=== PATIENT | female | born 2000 | race Caucasian/White ===

== ENCOUNTER 2021-03-06 11:10 | Emergency (ER) | payer BC ==
--- OUTSIDE RECORDS SUMMARY | 2021-03-06 11:13 | XMS REPORT | Continuity of Care Document ---
:2000 Author Organization [facility] t Address [address] Coleman [address] [place] [id number] Care Team Providers Name Role Phone Marcial Rogers Attending Clinician Problems Condition Condition Condition Status Onset Resolution Last Treating Co mments Source Name Details Category Date Date Treatment Clinician Date Acute Acute Problem Active 2018-11 [facility] bronchitis Bronchitis 12-19 da 00:00: Medical 00 Group Anxiety Anxiety Problem Active [facility] 06-14 da 00:00: Medical 00 Group Pharyngiti Pharyngiti Problem Active [facility] Dysmenorrh Dysmenorrh Problem Active [facility] Otalgia Problem Resolve 2017-11-18 2017-11-18 Memoria (disorder) d 03-25 02:42:34 02:42:34 l Otalgia 00:00: Jean-Claude (disorder) 00 Resolved 03/25/2015 Problem 11/18/2017 Data migrated from [employer] on 06/05/15. Medical Group Stomatitis Problem Resolve 2017-11-18 2017-11-18 Memoria (disorder) d 03-25 02:42:34 02:42:34 l 00:00: [place] Stomatitis 00 (disorder) Resolved 03/25/2015 Problem 11/18/2017 Data migrated from [employer] on 06/05/15. Medical Group Acute Problem Resolve 2017-11-18 2017-11-18 Memoria bronchitis d 12-25 02:42:34 02:42:34 l (disorder) Acute 00:00: Mickie nn bronchitis 00 (disorder) Resolved 12/25/2014 Problem 11/18/2017 Data migrated from [employer] on 06/05/15. Medical Group Upper Problem Resolve 2013-112017-11-18 2017-11-18 Memoria respirator d 2-03 02:42:34 02:42:34 l y Upper 00:00: [place] infection respirator 00 (disorder) y infection (disorder) Resolved 10/31/2014 Problem 11/18/2017 Data migrated from [employer] on 06/15/15.Da ta migrated from [employer] on 06/14/15. Medical Group Allergies, Adverse Reactions, Alerts Allergy Allergy Status Severity Reaction(s) Onset Inactive Treating Comm ents Source Name Type Date Date Clinician Tramadol Allergy Active Hives [facility] to da substanc [facility] e Group Social History Smoking Status Start Date Stop Date Source Former Smoker [facility] Social History [facility] Medications Ordered Filled Start Stop Current Ordering Indication Dosage Frequency Signature Comments Components Source Medication Medication Date Date Medication? Clinician (SIG) Name Name dicyclomine dicyclomine No dicyclomin [facility] 20 mg 20 mg e 20 mg da tablet TAKE tablet TAKE tablet Medical 1 TABLET BY 1 TABLET BY TAKE 1 Group MOUTH EVERY MOUTH EVERY TABLET BY 6 HOURS 6 HOURS MOUTH NEEDED FOR NEEDED FOR EVERY 6 ABDOMINAL ABDOMINAL HOURS CRAMPS CRAMPS NEEDED FOR ABDOMINAL CRAMPS Diflucan Diflucan No 1 Q1D Diflucan [facility] 150 mg 150 mg 150 mg da tablet Take tablet Take tablet Medical 1 tablet 1 tablet Take 1 Group every day every day tablet by oral by oral every day route for 3 route for 3 by oral days. days. route for 3 days. duloxetine duloxetine No duloxetine [facility] 60 mg 60 mg 60 mg da capsule,del capsule,del capsule,de Medical ayed ayed layed Group release release release TAKE 1 TAKE 1 TAKE 1 CAPSULE BY CAPSULE BY CAPSULE BY MOUTH EVERY MOUTH EVERY MOUTH DAY DAY EVERY DAY ketorolac ketorolac No ketorolac [facility] 10 mg 10 mg 10 mg da tablet TAKE tablet TAKE tablet Medical 1 TABLET 1 TABLET TAKE 1 Group EVERY 6 EVERY 6 TABLET HOURS HOURS EVERY 6 NEEDED FOR NEEDED FOR HOURS SEVERE SEVERE NEEDED FOR PAIN. TAKE PAIN. TAKE SEVERE WITH FOOD WITH FOOD PAIN. TAKE WITH FOOD ondansetron ondansetron No ondansetro [facility] 4 mg 4 mg n 4 mg da disintegrat disintegrat disintegra Medical ing tablet ing tablet ting Hamzah up DISSOLVE 1 DISSOLVE 1 tablet TABLET IN TABLET IN DISSOLVE 1 MOUTH EVERY MOUTH EVERY TABLET IN 6 HOURS 6 HOURS MOUTH NEEDED FOR NEEDED FOR EVERY 6 NAUSEA. NAUSEA. HOURS NEEDED FOR NAUSEA. OptiChamber OptiChamber No OptiChambe [facility] Mikki VHC Mikki VHC r Mikki da spacer spacer [employer] spacer Medic al Group ProAir HFA ProAir HFA No 2puff(s Q4H ProAir HFA [facility] 90 90 ) 90 da mcg/actuati mcg/actuati mcg/actuat Medical on aerosol on aerosol ion Hamzah up inhaler inhaler aerosol Inhale 2 Inhale 2 inhaler puffs every puffs every Inhale 2 4 hours by 4 hours by puffs inhalation inhalation every 4 route as route as hours by needed. needed. inhalation route as needed. Prozac 20 Prozac 20 No 1capsul Q1D Prozac 20 [facility] mg capsule mg capsule e(s) mg capsule da Take 1 Take 1 Take 1 Medical capsule capsule capsule Group every day every day every day by oral by oral by oral route. route. route. 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 BP Systolic 2020-11-19 00:00:00 139 mm[Hg] [facility] Body Weight 2020-11-19 00:00:00 1891 [oz_av[facility] BP Diastolic 2019-10-19 00:00:00 78 mm[Hg] [facility] Height 2019-10-19 00:00:00 66 [in_i] [facility] BMI (Body Mass 2019-10-19 00:00:00 18 kg/m2 [facility] 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 BP Systolic 2019-10-19 00:00:00 115 mm[Hg] [facility] Body Weight 2019-10-19 00:00:00 1781 [oz_av] [facility] BP Diastolic 2019-08-07 00:00:00 73 mm[Hg] [facility] Height 2019-08-07 00:00:00 66 [in_i] [facility] BMI (Body Mass 2019-08-07 00:00:00 18.7 kg/m2 [facility] 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 BP Systolic 2019-08-07 00:00:00 117 mm[Hg] [facility] Body Weight 2019-08-07 00:00:00 1856 [oz_av] [facility] BP Diastolic 2019-06-14 00:00:00 67 mm[Hg] [facility] Height 2019-06-14 00:00:00 66 [in_i] [facility] BMI (Body Mass 2019-06-14 00:00:00 20.1 kg/m2 [facility] 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 BP Systolic 2019-06-14 00:00:00 118 mm[Hg] [facility] Body Weight 2019-06-14 00:00:00 1993.6 [oz_av] [facility] flight test mechanic Medical [facility] BP Diastolic 2019-05-19 00:00:00 72 mm[Hg] [facility] Height 2019-05-19 00:00:00 66 [in_i] [facility] BMI (Body Mass 2019-05-19 00:00:00 19.9 kg/m2 [facility] 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 BP Systolic 2019-05-19 00:00:00 120 mm[Hg] [facility] Body Weight 2019-05-19 00:00:00 1976 [oz_av] [facility] Procedures Procedure Date / Time Performed Performing Clinician Sour e XR, wrist, 2 view 2019-05-19 00:00:00 [facility] Ankle fracture [facility] Tibia and fibula [facility] n (combined site)<sup>1</sup> Plan of Care Planned Activity Planned Date Details Comments Source Instructions [facility] Encounters Start End Encounter Admission Attending Care Care Encounter Source Date/Time Date/Time Type Type Clinicians Facility Department ID 2020-11-19 2020-11-19 Brigette PEREZ [place] - [id number] [facility] 00:00:00 00:00:00 Discovery sabas Pastor PORTRAIT CONSULTANT: [address] [place] [address], [facility] [address] , Ph. 2019-10-19 2019-10-19 Vicky [facility] [place] - [id number] M [facility] 00:00:00 00:00:00 Chey Mendoza Medical Medical PORTRAIT CONSULTANT: [address] [place] [address], [place] [address] , Ph. 2019-08-07 2019-08-07 Brigette HAAS [place] - [id number] M [facility] 00:00:00 00:00:00 Discovery sabas Pastor PORTRAIT CONSULTANT: [address] [place] [address], [facility] [place] [address] , Ph. 2019-06-14 2019-06-14 Brigette [facility] [place] - [id number] M [facility] 00:00:00 00:00:00 Discovery sabas Pastor PORTRAIT CONSULTANT: [address] [place] [address], [facility] [place] [address] , Ph. 2019-05-19 2019-05-19 Vicky [facility] [place] - [id number] M [facility] 00:00:00 00:00:00 Chey Mendoza Medical Medical PORTRAIT CONSULTANT: [address] [place] [address], [place] [address] , Ph. 2017-11-15 2017-11-15 Outpatient [facility] [id number] 565 09:15:00 09:15:00 Jennifer Ceja Results Test Description Test Time Test Comments Results Result Comments Source rapid flu (A+B) 2019-08-07 16:51:30 Test Item Value Reference Range Interpretation Comme nts Flu (test code = Flu) negative [facility]
--- NOTE | 2021-03-06 15:24 | RAD REPORT ---
EXAM DESCRIPTION: RAD - Chest Single View - 03/06/2021 1:55 pm CLINICAL HISTORY: Cough;SOB Chest pain. COMPARISON: No comparisons FINDINGS: Portable technique limits examination quality. The lungs are grossly clear. The heart is normal in size. No displaced fractures. IMPRESSION: No acute intrathoracic process suspected.
[2021-03-06] MEDS ORDERED: IPRATROPIUM BROM 0.5MG/2.5ML ONE (16:19)
[2021-03-06] MEDS ORDERED: ALBUTEROL 2.5 MG/3 ML NEB SOL ONE (16:19)
[2021-03-06] MEDS ORDERED: dexAMETHasone 10 MG/ML VIAL ONE (16:31)
[2021-03-06 16:37] LABS: SARS-COV-2 RT PCR NEGATIVE (NEGATIVE)
--- NOTE | 2021-03-06 16:42 | EDPHYS ---
Physician Documentation [facility] Name: Ruma Mejia Age: 20 yrs Sex: Female : 2000 Arrival Date: 03/06/2021 Time: 11:13 Bed 24 Private MD: ED Physician Nikolas Cowan HPI: 03/06 12:49 This 20 yrs old Female presents to ER via Ambulatory with complaints of jmm Shortness Of Breath, Chest Congestion. 12:49 The patient has shortness of breath at rest. Onset: The symptoms/episode began/occurred jmm gradually. The patient's shortness of breath is aggravated by coughing. This is a 20 year old female with a history of asthma that presents to the ED with complaints of cough, fever, eachache, sore throat. Patient states brother recently tested positive for covid. Also complains of wheezing. 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 jmm 12:49 ENT: Positive for ear pain, sore throat. 12:49 All other systems are negative. Exam: 12:49 Constitutional: This is a well developed, well nourished patient who is awake, alert, jmm and in no acute distress. Head/Face: atraumatic. 12:49 Neck: Trachea midline, Supple Chest/axilla: Normal chest wall appearance and motion. Cardiovascular: Regular rate and rhythm. No edema appreciated 12:49 Abdomen/GI: Non distended, soft Back: Normal ROM Skin: General appearance color normal MS/ Extremity: Moves all extremities, no obvious deformities appreciated, no edema noted to the lower extremities Neuro: Awake and alert, normal gait Psych: Behavior is normal, Mood is normal, Patient is cooperative and pleasant 12:49 ENT: TM's: erythema, that is mild, on the left, Posterior pharynx: erythema, that is mild. 12:49 Respiratory: the patient does not display signs of respiratory distress, Respirations: normal, Breath sounds: wheezing: that is mild, is scattered. Vital Signs: 11:59 BP 118 / 66; Pulse 87; Resp 18; Temp 98.4(O); Pulse Ox 99% on R/A; Weight 56.7 kg; kl Height 5 ft. 6 in. (167.64 cm); Pain 8/10; 11:59 Body Mass Index 20.18 (56.70 kg, 167.64 cm) kl MDM: 16:05 Patient medically screened. [facility] 16:38 Data reviewed: vital signs, nurses notes. Counseling: I had a detailed discussion with [facility] the patient and/or guardian regarding: the historical points, exam findings, and any diagnostic results supporting the discharge/admit diagnosis, radiology results, the need for outpatient follow up, to return to the emergency department if symptoms worsen or persist or if there are any questions or concerns that arise at home. ED course: Patient is alert and non toxic in appearance in the ED. Patient has no resp distress in the ED. Advised to follow up with pcp and otherwise given strict return precautions. patient understood and agrees with the plan of care. . 03/06 14:57 Order name: COVID-19 : Document "Date of Symptom Onset" if Symptomatic. [facility] 03/06 15:32 Order name: Strep; Complete Time: 16:10 [facility] 03/06 15:59 Order name: Throat Culture [facility] 03/06 16:37 Order name: COVID-19/FLU A+B; Complete Time: 16:38 [facility] 03/06 12:49 Order name: CXR XRAY; Complete Time: 15:45 iw Administered Medications: 16:07 Drug: Albuterol - atroVENT (ipratropium) (3:1) (2.5 mg - 0.5 mg) 3 ml Route: Nebulizer; aa5 16:40 Follow up: Response: No adverse reaction aa5 16:42 Drug: Decadron (dexamethasone) 10 mg Route: IM; Site: right gluteus; aa5 17:00 Follow up: Response: No adverse reaction aa Disposition: 16:38 Chart complete. Chart complete. [facility] Disposition: 03/06/21 16:41 Discharged to Home. Impression: Acute pharyngitis, Acute serous otitis media, bilateral. - Condition is Stable. - Discharge Instructions: Asthma, Adult, Otitis Media, Adult, Pharyngitis. - Prescriptions for Zithromax Z- Artem 250 mg Oral Tablet - take 1 tablet by ORAL route as directed for 5 days Day 1 - take two (2) tablets one time. Day 2, 3, 4 , 5 take one (1) tablet once daily.; 6 tablet. Albuterol Sulfate 90 mcg/actuation - inhale 1-2 puff by INHALATION route every 4-6 hours; 1 Inhaler. - Medication Reconciliation Form, Thank You Letter, Antibiotic Education, Prescription Opioid Use, Work release form form. - Follow up: Private Physician; When: 2 - 3 days; Reason: Recheck today's complaints, Continuance of care, Re-evaluation by your physician. Addendum: 03/08/2021 07:18 Co-signature as Attending Physician, Nikolas Cowan MD I agree with the assessment and k dr plan of care. Signatures: Dispatcher [employer] EDME Nikolas Cowan MD MD [facility] Damien Ren PA PA jmm Calderon, Audri, RN RN aa5 Corrections: (The following items were deleted from the chart) 03/06 15:48 14:58 CORONAVIRUS ordered. EDME EDMS 15:48 14:58 Influenza Screen (A \\T\\ B)+[id number].LAB.BRZ ordered. EDME EDMS 17:40 16:41 03/06/2021 16:41 Discharged to Home. Impression: Acute pharyngitis; Acute serous aa5 otitis media, bilateral. Condition is Stable. Forms are Medication Reconciliation Form, Thank You Letter, Antibiotic Education, Prescription Opioid Use. Follow up: Private Physician; When: 2 - 3 days; Reason: Recheck today's complaints, Continuance of care, Re-evaluation by your physician. [facility]
--- NOTE | 2021-03-06 16:42 | ER ---
Nurse's Notes [facility] Name: Ruma Mejia Age: 20 yrs Sex: Female : 2000 Arrival Date: 03/06/2021 Time: 11:13 Bed 24 Private MD: Diagnosis: Acute pharyngitis;Acute serous otitis media, bilateral Presentation: 03/06 11:59 Chief complaint: Patient states: SOB cough fever x 4 days. Coronavirus screen: Client kl denies travel out of the [place] in the last 14 days. Client presents with at least one sign or symptom that may indicate coronavirus-19. Standard/surgical mask placed on the client. Provider contacted for isolation considerations. The client reports previous COVID testing was negative. Date of collection: March 05, 2021 sister positive for covid. Ebola Screen: Patient negative for fever greater than or equal to 101.5 degrees Fahrenheit, and additional compatible Ebola Virus Disease symptoms. Initial Sepsis Screen: Does the patient meet any 2 criteria? No. Patient's initial sepsis screen is negative. Risk Assessment: Do you want to hurt yourself or someone else? Patient reports no desire to harm self or others. Onset of symptoms. 11:59 Method Of Arrival: Ambulatory 11:59 Acuity: RASHI 3 kl 15:00 Initial Sepsis Screen: Does the patient have a suspected source of infection? Yes:. aa5 RULES EXAMINER: 12:02 [facility] 02/10/2021 Historical: - Allergies: 15:00 No Known Allergies; aa5 - PMHx: 15:00 Asthma; aa5 Screenin:00 Abuse screen: Denies threats or abuse. Nutritional screening: No deficits noted. aa5 Tuberculosis screening: No symptoms or risk factors identified. Fall Risk None identified. Assessment: 15:00 General: Appears uncomfortable, Behavior is calm, cooperative. Pain: Complains of pain aa5 in chest Quality of pain is described as pressure. Neuro: Level of Consciousness is awake, alert, obeys commands, Oriented to person, place, time, situation. Cardiovascular: Heart tones S1 S2 present Rhythm is regular. Respiratory: Reports shortness of breath Airway is patent Respiratory effort is even, unlabored, Respiratory pattern is regular, symmetrical, Breath sounds with wheezes bilaterally. GI: Abdomen is flat, non-distended. : No signs and/or symptoms were reported regarding the genitourinary system. EENT: Reports nasal congestion. Derm: Skin is pink, warm \T\ dry. Musculoskeletal: Range of motion: intact in all extremities. 17:35 Reassessment: Patient is alert, oriented x 3, equal unlabored respirations, skin aa5 warm/dry/pink. 17:35 Reassessment: Patient states feeling better. Patient states symptoms have improved. aa5 Respiratory: Breath sounds are clear bilaterally. Vital Signs: 11:59 BP 118 / 66; Pulse 87; Resp 18; Temp 98.4(O); Pulse Ox 99% on R/A; Weight 56.7 kg; kl Height 5 ft. 6 in. (167.64 cm); Pain 8/10; 11:59 Body Mass Index 20.18 (56.70 kg, 167.64 cm) ED Course: 11:13 Patient arrived in ED. am2 11:58 Arm band placed on. aa5 12:01 Triage completed. 13:52 CXR XRAY In Process Unspecified. EDMS 14:54 Damien Ren PA is PHCP. [facility] 14:54 Nikolas Cowan MD is Attending Physician. [facility] 14:56 Licha Davila, ZACK is Primary Nurse. aa5 15:00 Patient has correct armband on for positive identification. Bed in low position. Call aa5 light in reach. Side rails up X 1. 17:35 No provider procedures requiring assistance completed. Patient did not have IV access aa5 during this emergency room visit. Administered Medications: 16:07 Drug: Albuterol - atroVENT (ipratropium) (3:1) (2.5 mg - 0.5 mg) 3 ml Route: Nebulizer; aa5 16:40 Follow up: Response: No adverse reaction aa5 16:42 Drug: Decadron (dexamethasone) 10 mg Route: IM; Site: right gluteus; aa5 17:00 Follow up: Response: No adverse reaction aa5 Outcome: 16:41 Discharge ordered by . [facility] 17:38 Discharged to home ambulatory. aa5 17:38 Condition: improved 17:38 Discharge instructions given to patient, Instructed on discharge instructions, follow up and referral plans. medication usage, Demonstrated understanding of instructions, follow-up care, medications, Prescriptions given X 2. 17:40 Patient left the ED. aa5 Signatures: Dispatcher [employer] Darcy Tobar RN RN kl Mickail, Joel, PA PA jmm Calderon, Audri, RN RN aa5 Katalina Haro am2
[2021-03-07 03:54] VITALS: BP 118/66; TEMP 98.4; O2SAT 99
== END 2021-03-06 17:40 | disposition home or self-care (01) ==
LOC: ER 11:10
DX: J02.9 Acute pharyngitis, unspecified (principal); H65.03 Acute serous otitis media, bilateral; Z20.822 Contact with and (suspected) exposure to COVID-19
CPT/HCPCS: 87070; 87081; 0240U; 71045; 96372; 99284; J1100